=== PATIENT | female | born 1995 ===

== ENCOUNTER 2017-02-03 17:07 | Outpatient (CLI) | payer MEDICAID, OTHER ==
[2017-02-03 17:34] LABS: Amphetamine Not Detected (NotDetected); Barbiturates Screen Not Detected (NotDetected); Benzodiazepine Screen Not Detected (NotDetected); Cocaine Metabolite Screen Not Detected (NotDetected); Medtox Control Line Valid? VALID (VALID); Methadone Not Detected (NotDetected); Methamphetamine Not Detected (NotDetected); Opiate Screen Not Detected (NotDetected); Oxycodone Screen Not Detected (NotDetected); Phencyclidine (PCP) Not Detected (NotDetected); THC/Cannabinoid Screen Not Detected (NotDetected); Tricyclic Screen Not Detected (NotDetected)
== END 2017-02-03 17:08 | disposition home or self-care (01) ==
LOC: MADLABBHPM 17:07
PROVIDERS: ATTEND Family Medicine
DX: Z34.03 Encounter for supervision of normal first pregnancy, third trimester (principal)
CPT/HCPCS: 80306; 87086; 87491; 87591

== ENCOUNTER 2017-02-17 14:18 | Outpatient (CLI) | payer OTHER | END 2017-02-17 14:19 | disposition home or self-care (01) | LOC: MADLABBHPM 14:18 | PROVIDERS: ATTEND Family Medicine | DX: Z34.03 Encounter for supervision of normal first pregnancy, third trimester (principal) | CPT/HCPCS: 36415; 87086; 87491; 87591 ==